=== PATIENT | female | born 1980 | race American Indian/Alaskan Native ===

== ENCOUNTER 2016-08-23 16:52 | Emergency (ER) | payer OTHER ==
[2016-08-23 17:25] VITALS: TEMP 98
[2016-08-23 18:51] VITALS: BP 119/84; PULSE 74; RESP 16; O2SAT 100
[2016-08-23 18:54] LABS: ADD MANUAL DIFF? NO
[2016-08-23 19:08] LABS: ALB/GLOB RATIO 0.9 (1.1-1.8); ALKALINE PHOSPHATASE 152 U/L (38-133); ALT/SGPT 14 U/L (7-56); AST/SGOT 28 U/L (15-39); BILIRUBIN,TOTAL 0.4 mg/dL (0.2-1.3); BLOOD UREA NITROGEN 12 mg/dL (7-21); CALCIUM 9.1 mg/dL (8.4-10.5); CARBON DIOXIDE 26 mmol/L (21-33); CHLORIDE 100 mmol/L (98-107); GFR AFRICAN-AMERICAN > 60; GLUCOSE,RANDOM 86 mg/dL (70-110); LIPASE 171 U/L (23-300); POTASSIUM 4.1 mmol/L (3.6-5.0); SODIUM 138 mmol/L (132-148); TOTAL PROTEIN 8.3 g/dL (5.8-8.3)
[2016-08-23 19:15] LABS: BASO # 0.03 K/mm3 (0.0-2.0); BASO % 0.5 % (0.0-3.0); EOS # 0.1 (0.0-0.7); GRAN # 2.82 (1.4-6.5); HEMATOCRIT 29.4 % (36.0-48.0); LYMPH # 2.5 (1.2-3.4); LYMPH % 43.3 % (22.0-35.0); MEAN CORPUSCULAR HGB CONC 30.3 g/dl (31.0-37.0); MEAN PLATELET VOLUME 9.5 fl (7.0-11.0); MONO # 0.4 (0.1-0.6); MONO % 6.2 % (1.0-6.0); PLATELET COUNT 395 10^3/uL (120.0-450.0); RED CELL DISTRIBUTION WIDTH 17.1 % (11.5-14.5); WHITE BLOOD COUNT 5.8 10^3/ul (4.5-11.0)
[2016-08-23 19:22] LABS: PARTIAL THROMBOPLASTIN TIME 24.5 Seconds (23.7-30.8)
--- NOTE | 2016-08-23 19:57 | CT ---
EXAM: CT Abdomen and Pelvis Without Intravenous Contrast. CLINICAL HISTORY: 36 years old, female; Pain; Abdominal pain; Localized; Left lower quadrant (llq); Prior surgery; Surgery date: 6+ months; Surgery type: HX of gastric bypass 2007; Additional info: Llq abdominal pain TECHNIQUE: Axial computed tomography images of the abdomen and pelvis without intravenous contrast. This CT exam was performed using one or more of the following dose reduction techniques: automated exposure control, adjustment of the mA and/or kV according to patient size, and/or use of iterative reconstruction technique. Coronal and sagittal reformatted images were created and reviewed. EXAM DATE/TIME: 08/23/2016 5:39 PM COMPARISON: No relevant prior studies available. FINDINGS: LOWER THORAX: No infiltrate seen in the lung bases. ABDOMEN: LIVER: No acute abnormality of the liver identified. GALLBLADDER AND BILE DUCTS: No CT evidence of acute cholecystitis. No evidence of significant biliary ductal dilatation. PANCREAS: No CT evidence of acute pancreatitis. SPLEEN: No acute abnormality of the spleen identified. ADRENALS: No acute abnormality of the adrenal glands identified. KIDNEYS AND URETERS: No acute abnormality of the kidneys seen. No evidence of hydroureteronephrosis. STOMACH AND BOWEL: Postsurgical changes involving the stomach and left abdomen, with an appearance most compatible with previous gastric bypass surgery. Retained stool noted throughout the colon. No evidence of large bowel obstruction. No evidence of diverticulitis. No acute abnormality of the gastric pouch or excluded portion of the stomach identified. No evidence of small bowel obstruction. APPENDIX: Appendix is seen, and is within normal limits in appearance. PELVIS: BLADDER: No acute abnormality of the bladder identified. REPRODUCTIVE:No acute abnormality of the reproductive organs is seen. No acute abnormality of the uterus identified. No evidence of large adnexal masses. ABDOMEN and PELVIS: INTRAPERITONEAL SPACE: No evidence of free intraperitoneal air or fluid. BONES/JOINTS: No acute fractures or other acute bony abnormality noted. SOFT TISSUES: No acute abnormality of the visualized soft tissues is seen. VASCULATURE: No evidence of abdominal aortic aneurysm. No evidence of periaortic hemorrhage. LYMPH NODES: No evidence of diffuse lymphadenopathy. IMPRESSION: - No evidence of significant acute process. - Stool-filled colon, suggestive of fecal retention/constipation. - See above for remaining findings.
--- NOTE | 2016-08-23 20:08 | ED PDOC ---
Arrival/HPI - General Chief Complaint: Abdominal Pain Time Seen by Provider: 08/23/16 17:39 Historian: Patient - History of Present Illness Narrative History of Present Illness (Text): 08/23/16 20:05 36yo female with surgical history of gastric bypass present with one week history of LLQ abdominal pain. States pain became increasingly worse. Notes odorous urine that she noticed this evening. Denies nausea, vomiting, diarrhea, constipation, fever, chills, urinary symptoms, hematuria, melena, hematemesis, any other complaint. Past Medical History - Provider Review Nursing Documentation Reviewed: Yes - Psychiatric Hx Substance Use: No - Surgical History Hx Gastric Bypass Surgery: Yes Family/Social History - Physician Review Nursing Documentation Reviewed: Yes Family/Social History: Unknown Family HX Smoking Status: Never Smoked Hx Alcohol Use: Yes Frequency of alcohol use: Socially Hx Substance Use: No Allergies/Home Meds Allergies/Adverse Reactions: Allergies No Known Allergies Allergy (Verified 08/23/16 17:15) Review of Systems - Physician Review All systems were reviewed & negative as marked: Yes - Review of Systems Constitutional: Normal Eyes: Normal ENT: Normal Respiratory: Normal Cardiovascular: Normal Gastrointestinal: Abdominal Pain. absent: Constipation, Diarrhea, Nausea, Vomiting, Hematochezia, Hematemesis Genitourinary Female: Normal Musculoskeletal: Normal Skin: Normal Neurological: Normal Endocrine: Normal Hemo/Lymphatic: Normal Psychiatric: Normal Physical Exam Vital Signs Reviewed: Yes Vital Signs Temp Pulse Resp BP Pulse Ox 08/23/16 18:47 74 16 119/84 100 08/23/16 17:24 98.0 F 64 18 148/79 98 08/23/16 17:15 98.2 F 68 15 128/71 100 Temperature: Afebrile Blood Pressure: Normal Pulse: Regular Respiratory Rate: Normal Appearance: Positive for: Well-Appearing, Non-Toxic, Comfortable Pain Distress: None Mental Status: Positive for: Alert and Oriented X 3 - Systems Exam Head: Present: Atraumatic, Normocephalic Pupils: Present: PERRL Extroacular Muscles: Present: EOMI Conjunctiva: Present: Normal Mouth: Present: Moist Mucous Membranes Neck: Present: Normal Range of Motion Respiratory/Chest: Present: Clear to Auscultation, Good Air Exchange. No: Respiratory Distress, Accessory Muscle Use Cardiovascular: Present: Regular Rate and Rhythm, Normal S1, S2. No: Murmurs Abdomen: Present: Tenderness (LLQ tenderness), Normal Bowel Sounds, Other (soft) . No: Distention, Peritoneal Signs, Rebound, Guarding, McBurney's Point Tender , Rovsing's Sign Present Back: Present: Normal Inspection Upper Extremity: Present: Normal Inspection. No: Cyanosis, Edema Lower Extremity: Present: Normal Inspection. No: Edema Neurological: Present: GCS=15, CN II-XII Intact, Speech Normal Skin: Present: Warm, Dry, Normal Color. No: Rashes Psychiatric: Present: Alert, Oriented x 3, Normal Insight, Normal Concentration Medical Decision Making ED Course and Treatment: 08/24/16 01:21 PT in ED for stated history. Lab was unremarkable. Abdominal CT Constipation. On re evalution she states she feels better. DC home with miralax. Referred to her PMD. TRT ED for any new or worsening symptoms. - Lab Interpretations Lab Results: 08/23/16 06:30 08/23/16 06:30 Lab Results 08/23/16 19:30: Urine Color Yellow, Urine Appearance Clear, Urine pH 6.5, Ur Specific Glide 1.020, Urine Protein Negative, Urine Glucose (UA) Negative, Urine Ketones Negative, Urine Blood Negative, Urine Nitrate Negative, Urine Bilirubin Negative, Urine Urobilinogen 0.2, Ur Leukocyte Esterase Negative 08/23/16 06:30: WBC 5.8, RBC 3.87, Hgb 8.9 L, Hct 29.4 L, MCV 76.0 L, MCH 23.0 L , MCHC 30.3 L, RDW 17.1 H, Plt Count 395, MPV 9.5, Gran % 49.0 L, Lymph % (Auto ) 43.3 H, [place] % (Auto) 6.2 H, Eos % (Auto) 1.0 L, Baso % (Auto) 0.5, Gran # 2.82, Lymph # 2.5, [place] # 0.4, Eos # 0.1, Baso # 0.03, PT 10.8, INR 1.00, APTT 24.5, Sodium 138, Potassium 4.1, Chloride 100, Carbon Dioxide 26, Anion Gap 16, BUN 12, Creatinine 0.6, Est GFR ( Amer) > 60, Est GFR (Non-Af Amer) > 60 , Random Glucose 86, Calcium 9.1, Total Bilirubin 0.4, AST 28, ALT 14, Alkaline Phosphatase 152 H, Total Protein 8.3, Albumin 4.0, Globulin 4.3, Albumin/ Globulin Ratio 0.9 L, Lipase 171 - RAD Interpretation Radiology Orders: 08/23/16 17:39 ABD & PELVIS W/O PO OR IV CONT [CT] Stat - Medication Orders Current Medication Orders: Discontinued Medications Ketorolac Tromethamine (Toradol) 30 mg IVP STAT STA Stop: 08/23/16 20:08 Last Admin: 08/23/16 20:27 Dose: 30 MG IVP Administration Document 08/23/16 20:27 JAG (Rec: 08/23/16 20:27 JAG [id number]) Charges for Administration # of IVP Administrations 1 Disposition/Present on Arrival - Present on Arrival Any Indicators Present on Arrival: No History of DVT/PE: No History of Uncontrolled Diabetes: No Urinary Catheter: No History of Decub. Ulcer: No History Surgical Site Infection Following: None - Disposition Have Diagnosis and Disposition been Completed?: Yes Diagnosis: Abdominal pain Disposition: HOME/ ROUTINE Disposition Time: 20:25 Patient Plan: Discharge Condition: STABLE Discharge Instructions (ExitCare): Abdominal Pain (ED) Additional Instructions: Follow up with your Doctor Increase fiber intake Return to Ed for any new or worsening symptoms Prescriptions: Polyethylene Glycol 3350 [Miralax] 17 .8 PO BID #100 ml Referrals: [facility] at [facility] [place] [Outside] - Follow up with primary
[2016-08-23 20:17] LABS: PH,URINE 6.5 (4.7-8.0); URINE BILIRUBIN NEGATIVE (NEGATIVE); URINE BLOOD NEGATIVE (NEGATIVE); URINE GLUCOSE (UA) NEGATIVE (NEGATIVE); URINE KETONE NEGATIVE (NEGATIVE); URINE LEUKOCYTE ESTERASE NEGATIVE Leu/uL (NEGATIVE); URINE PROTEIN NEGATIVE mg/dL (<30 mg/dL); URINE UROBILINOGEN 0.2 E.U./dL (<1 E.U./dL)
[2016-08-23 20:19] LABS: URINE APPEARANCE CLEAR (CLEAR); URINE COLOR YELLOW (YELLOW)
== END 2016-08-23 20:39 | disposition home or self-care (01) ==
LOC: ED 16:52
DX: R10.9 Unspecified abdominal pain (principal)
CPT/HCPCS: 74176; 80053; 81003; 83690; 85025; 85610; 85730; 96374; 99283; J1885